=== PATIENT | female | born 1990 ===

== ENCOUNTER 2022-01-20 19:05 | Emergency (ER) | payer OTHER, SELFPAY ==
[2022-01-20 20:47] LABS: Absolute Lymphocytes (CBC) 1.4 K/uL (0.7-4.9); Hematocrit 39.7 % (36.0-45.0); Lymphocytes % 19.2 % (15.3-44.8); MPV 8.1 fL (7.6-11.3); RBC Red Blood Cell Count 4.75 M/uL (3.86-4.86)
[2022-01-20 20:47] LABS: Urine Blood Negative (Negative); Urine Glucose Negative (Negative); Urine Protein Negative (Negative); Urine pH 6.5 (5.0-7.0)
[2022-01-20] MEDS ORDERED: FENTANYL CITR 100 MCG/2 ML ONE (20:54)
[2022-01-20] MEDS ORDERED: NA CHLORIDE 0.9% 1,000 ML ONE (20:54)
[2022-01-20 21:02] LABS: Albumin 4.1 g/dL (3.4-5.0); Bilirubin Total 0.3 mg/dL (0.2-1.0); Potassium 3.6 mmol/L (3.5-5.1); Protein, Total 7.1 g/dL (6.4-8.2)
[2022-01-20 21:25] LABS: Urine Bacteria <20 /HPF (<20); Urine RBC NONE SEEN /HPF (NONE SEEN)
--- NOTE | 2022-01-20 21:55 | RAD REPORT ---
EXAM DESCRIPTION: CT - Abdomen Pelvis W Contrast - 01/20/2022 9:20 pm CLINICAL HISTORY: RLQ abdominal pain COMPARISON: No comparisons TECHNIQUE: Biphasic, helical CT imaging of the abdomen and pelvis was performed following 100 ml non -ionic IV contrast. No oral contrast was administered. All CT scans are performed using dose optimization technique as appropriate and may include automated exposure control or mA/KV adjustment according to patient size. FINDINGS: No suspicious findings in the lung bases. The liver, spleen, and pancreas show no suspicious findings. Gallbladder and biliary tree are also wi thout suspicious finding. Symmetric renal function is seen with no hydronephrosis or suspicious renal mass. No pyelonephritis o r acute parenchymal process. No bladder abnormalities. No adrenal abnormalities. Uterus and ovaries s how no suspicious findings. No fallopian tube dilatation. No dilated bowel loops or bowel wall thickening. No appendicitis findings. Moderate stool volume seen in the right-side of the colon. No free air, free fluid or inflammatory stranding. No hernia, mass or bulky lymphadenopathy. No suspicious bony findings. IMPRESSION: Contrast enhanced CT abdomen and pelvis showing no acute or emergent finding.
--- NOTE | 2022-01-20 22:17 | ER ---
Nurse's Notes [facility] Name: Candida Dinh Age: 31 yrs Sex: Female : 1990 Arrival Date: 01/20/2022 Time: 19:08 Bed 12 Private MD: Diagnosis: Abdominal pain, unspecified Presentation: 01/20 19:46 Chief complaint: Patient states: having pain in RLQ, bilateral flank pain, urinary as6 frequency, nausea. Coronavirus screen: At this time, the client does not indicate any symptoms associated with coronavirus-19. Ebola Screen: No symptoms or risks identified at this time. Initial Sepsis Screen: Does the patient meet any 2 criteria? No. Patient's initial sepsis screen is negative. Does the patient have a suspected source of infection? No. Patient's initial sepsis screen is negative. Risk Assessment: Do you want to hurt yourself or someone else? Patient reports no desire to harm self or others. Onset of symptoms was January 18, 2022. 19:46 Method Of Arrival: Ambulatory as6 19:46 Acuity: BENJI 3 as6 Triage Assessment: 19:51 General: Appears uncomfortable, Behavior is calm, cooperative, anxious. Pain: Complains as6 of pain in right lower quadrant Pain radiates to left flank and right flank Quality of pain is described as pressure. : Reports urinary frequency. 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 - Social history:: Smoking status: Patient denies any tobacco usage or history of. Screenin:03 Abuse screen: Denies threats or abuse. Nutritional screening: No deficits noted. tw5 Tuberculosis screening: No symptoms or risk factors identified. Fall Risk None identified. Assessment: 21:03 General: Appears in no apparent distress. uncomfortable, Behavior is calm, cooperative, tw5 appropriate for age. Pain: Complains of pain in abdomen Pain currently is 7 out of 10 on a pain scale. Neuro: Level of Consciousness is awake, alert, obeys commands, Oriented to person, place, time, situation. Cardiovascular: Patient's skin is warm and dry. Respiratory: Airway is patent Respiratory effort is even, unlabored, Respiratory pattern is regular, symmetrical. GI: No signs and/or symptoms were reported involving the gastrointestinal system. : No signs and/or symptoms were reported regarding the genitourinary system. EENT: No signs and/or symptoms were reported regarding the EENT system. Derm: Skin is intact, Skin is pink, warm \T\ dry. 22:45 Reassessment: Patient appears in no apparent distress at this time. Patient and/or jb4 family updated on plan of care and expected duration. Pain level reassessed. Patient is alert, oriented x 3, equal unlabored respirations, skin warm/dry/pink. Vital Signs: 19:46 BP 163 / 90; Pulse 92; Resp 20 S; Temp 98.6(O); Pulse Ox 100% on R/A; Weight 65.77 kg as6 (R); Height 5 ft. 2 in. (157.48 cm) (R); Pain 7/10; 21:03 BP 124 / 75; Pulse 100; Resp 16; Pulse Ox 100% on R/A; tw5 22:45 BP 122 / 76; Pulse 89; Resp 16; Pulse Ox 98% on R/A; jb4 19:46 Body Mass Index 26.52 (65.77 kg, 157.48 cm) as6 ED Course: 19:08 Patient arrived in ED. bp1 19:51 Triage completed. as6 19:52 Arm band placed on. as6 19:55 Leroy Ugalde, MONTSERRAT is Primary Nurse. jb4 19:59 Naman Burrows NP is PHCP. pm1 19:59 Andrew Dia MD is Attending Physician. pm1 20:45 Initial lab(s) drawn, by me, sent to lab. Inserted saline lock: 20 gauge in right tw5 antecubital area, using aseptic technique. Blood collected. 21:03 Patient has correct armband on for positive identification. Bed in low position. Call tw5 light in reach. Side rails up X 1. Client placed on continuous cardiac and pulse oximetry monitoring. NIBP monitoring applied. 21:22 CT Abd/Pelvis - IV Contrast Only In Process Unspecified. EDMS 22:45 No provider procedures requiring assistance completed. IV discontinued, intact, jb4 bleeding controlled, No redness/swelling at site. Pressure dressing applied. Administered Medications: 21:01 Drug: NS 0.9% 1000 ml Route: IV; Rate: 1 bolus; Site: right antecubital; tw5 21:45 Follow up: Response: No adverse reaction; IV Status: Completed infusion jb4 21:01 Drug: fentaNYL (PF) 50 mcg Route: IVP; Site: right antecubital; tw5 21:30 Follow up: Response: No adverse reaction; Marked relief of symptoms jb4 21:03 Drug: Zofran (Ondansetron) 4 mg Route: IVP; Site: right antecubital; tw5 21:30 Follow up: Response: No adverse reaction; Marked relief of symptoms jb4 Medication: 22:45 VIS not applicable for this client. jb4 Outcome: 22:17 Discharge ordered by MD. pm1 22:45 Discharged to home ambulatory, with family. jb4 22:45 Condition: stable 22:45 Discharge instructions given to patient, Instructed on discharge instructions, follow up and referral plans. medication usage, Demonstrated understanding of instructions, follow-up care, medications, Prescriptions given X 2. 22:46 Patient left the ED. jb4 Signatures: Dispatcher [employer] EDMS Naman Burrows, CARLOS DOOR FURRING INSTALLER pm1 Leroy Ugalde RN RN jb4 Hailee Chin Tiffany tw5 Bautista Wilubrn RN RN as6
--- NOTE | 2022-01-20 22:17 | EDPHYS ---
Physician Documentation [facility] Name: Candida Dinh Age: 31 yrs Sex: Female : 1990 Arrival Date: 01/20/2022 Time: 19:08 Bed 12 Private MD: ED Physician Andrew Dia HPI: 01/20 20:15 This 31 yrs old Female presents to ER via Ambulatory with complaints of Flank Pain. pm1 20:15 The patient complains of pain in the right low back and right lower quadrant pain. pm1 Onset: The symptoms/episode began/occurred 3 day(s) ago. Modifying factors: The symptoms are alleviated by nothing. the symptoms are aggravated by nothing. Associated signs and symptoms: Pertinent negatives: diarrhea, dysuria, fever, nausea, vomiting. Severity of pain: in the emergency department the pain is unchanged. The patient has not experienced similar symptoms in the past. The patient has not recently seen a physician. 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 - Social history:: Smoking status: Patient denies any tobacco usage or history of. ROS: 20:15 Constitutional: Negative for fever, chills, and weight loss, Cardiovascular: Negative pm1 for chest pain, palpitations, and edema, Respiratory: Negative for shortness of breath, cough, wheezing, and pleuritic chest pain. 20:15 : Negative for injury, bleeding, discharge, and swelling, MS/Extremity: Negative for injury and deformity, Skin: Negative for injury, rash, and discoloration, Neuro: Negative for headache, weakness, numbness, tingling, and seizure. 20:15 Abdomen/GI: Positive for abdominal pain, of the right lower quadrant, Negative for nausea, vomiting, and diarrhea. 20:15 Back: Positive for flank pain, on the right. 20:15 All other systems are negative. Exam: 20:15 Constitutional: This is a well developed, well nourished patient who is awake, alert, pm1 and in no acute distress. Head/Face: Normocephalic, atraumatic. 20:15 Skin: Warm, dry with normal turgor. Normal color with no rashes, no lesions, and no evidence of cellulitis. MS/ Extremity: Pulses equal, no cyanosis. Neurovascular intact. Full, normal range of motion. 20:15 Eyes: Exam is negative for acute changes, Extraocular movements: no acute changes, Conjunctiva: normal, no injection, no acute changes. 20:15 ENT: Exam is negative for acute changes, Mouth: no acute changes, Lips: normal, moist, Oral mucosa: normal, pink and intact, moist. 20:15 Cardiovascular: Exam negative for acute changes, Rate: normal, Rhythm: regular, Pulses: no pulse deficits are appreciated. 20:15 Respiratory: Exam negative for acute changes, respiratory distress, shortness of breath. 20:15 Abdomen/GI: Inspection: abdomen appears normal, Palpation: soft, in all quadrants, mild abdominal tenderness, in the right lower quadrant. 20:15 Back: Exam negative for acute changes. 20:15 Neuro: Exam negative for acute changes, Orientation: is normal, Mentation: is normal, Motor: is normal, moves all fours. Vital Signs: 19:46 BP 163 / 90; Pulse 92; Resp 20 S; Temp 98.6(O); Pulse Ox 100% on R/A; Weight 65.77 kg as6 (R); Height 5 ft. 2 in. (157.48 cm) (R); Pain 7/10; 21:03 BP 124 / 75; Pulse 100; Resp 16; Pulse Ox 100% on R/A; tw5 22:45 BP 122 / 76; Pulse 89; Resp 16; Pulse Ox 98% on R/A; jb4 19:46 Body Mass Index 26.52 (65.77 kg, 157.48 cm) as6 MDM: 20:13 Patient medically screened. pm1 22:16 Data reviewed: vital signs. Data interpreted: Pulse oximetry: on room air is 100 %. pm1 Interpretation:. Counseling: I had a detailed discussion with the patient and/or guardian regarding: the historical points, exam findings, and any diagnostic results supporting the discharge/admit diagnosis, lab results, radiology results, the need for outpatient follow up, to return to the emergency department if symptoms worsen or persist or if there are any questions or concerns that arise at home. 01/20 20:15 Order name: CBC with Diff; Complete Time: 21:11 pm1 01/20 20:15 Order name: CMP; Complete Time: 21:11 pm1 01/20 20:15 Order name: Lipase; Complete Time: 21:11 pm1 01/20 20:15 Order name: Urine Microscopic Only; Complete Time: 22:04 pm1 01/20 20:48 Order name: Urine Dipstick-Ancillary; Complete Time: 21:11 EDMS 01/20 20:50 Order name: Urine --Ancillary (enter results); Complete Time: 22:18 wm 01/20 20:15 Order name: CT Abd/Pelvis - IV Contrast Only; Complete Time: 22:04 pm1 01/20 20:15 Order name: IV Saline Lock; Complete Time: 20:42 pm1 01/20 20:15 Order name: Labs collected and sent; Complete Time: 20:42 pm1 01/20 20:15 Order name: Urine Dipstick-Ancillary (obtain specimen); Complete Time: 21:03 pm1 01/20 20:15 Order name: Urine Test (obtain specimen); Complete Time: 21:03 pm1 Administered Medications: 21:01 Drug: NS 0.9% 1000 ml Route: IV; Rate: 1 bolus; Site: right antecubital; tw5 21:45 Follow up: Response: No adverse reaction; IV Status: Completed infusion jb4 21:01 Drug: fentaNYL (PF) 50 mcg Route: IVP; Site: right antecubital; tw5 21:30 Follow up: Response: No adverse reaction; Marked relief of symptoms jb4 21:03 Drug: Zofran (Ondansetron) 4 mg Route: IVP; Site: right antecubital; tw5 21:30 Follow up: Response: No adverse reaction; Marked relief of symptoms jb4 Disposition Summary: 01/20/22 22:17 Discharge Ordered Location: Home pm1 Problem: new pm1 Symptoms: have improved pm1 Condition: Stable pm1 Diagnosis - Abdominal pain, unspecified pm1 Followup: pm1 - With: Emergency Department - When: As needed - Reason: Worsening of condition Followup: pm1 - With: Private Physician - When: 2 - 3 days - Reason: Recheck today's complaints, Continuance of care, Re-evaluation by your physician Discharge Instructions: - Discharge Summary Sheet pm1 - Abdominal Pain, Adult pm1 - Constipation, Adult pm1 Forms: - Medication Reconciliation Form pm1 - Thank You Letter pm1 - Antibiotic Education pm1 - Prescription Opioid Use pm1 Prescriptions: - dicyclomine 20 mg Oral Tablet - take 1 tablet by ORAL route every 6 hours As needed; 20 tablet; Refills: 0, pm1 Product Selection Permitted - Lactulose 10 gram/15 mL Oral Solution - take 30 milliliters by ORAL route once daily; 300 milliliter; Refills: 0, pm1 Product Selection Permitted Addendum: 01/22/2022 04:18 Co-signature as Attending Physician, Andrew Dia MD I agree with the assessment and k dr plan of care. Signatures: Dispatcher [employer] EDVT Andrew Dia MD MD [facility] Naman Burrows NP COAL AND ASH SUPERVISOR pm1 Kaelyn Wise tw5 Bautista Wilburn RN RN as6 Leroy Ugalde RN jb4
[2022-01-20 22:54] VITALS: TEMP 98.6
[2022-01-20 22:58] VITALS: BP 122/76; O2SAT 98
== END 2022-01-20 22:46 | disposition home or self-care (01) ==
LOC: ER 19:05
DX: R10.31 Right lower quadrant pain (principal); Z88.5 Allergy status to narcotic agent; Z91.040 Latex allergy status; Z91.048 Other nonmedicinal substance allergy status
CPT/HCPCS: 36415; 74177; 80053; 81003; 81015; 81025; 83690; 85025; 96361; 96374; 96375; 99284; J3010; J7030; Q9967